=== PATIENT | male | born 1985 | race Caucasian/White ===

== ENCOUNTER 2022-09-14 05:00 | Day surgery (SDC) | payer OTHER | END 2022-09-14 12:25 | disposition home or self-care (01) | LOC: CIR.AMB 05:00 | PROVIDERS: ATTEND Specialist | DX: K40.90 Unilateral inguinal hernia, without obstruction or gangrene, not specified as recurrent (principal); Z20.822 Contact with and (suspected) exposure to COVID-19; Z86.16 Personal history of COVID-19; F12.90 Cannabis use, unspecified, uncomplicated | CPT/HCPCS: 49505; C1781 ==